=== PATIENT | male | born 1985 | race Caucasian/White ===

== ENCOUNTER 2019-12-09 15:50 | Emergency (ER) | payer SELFPAY ==
[~2019-12-09] VITALS: Ht 188 cm; Wt 79.5 kg
[2019-12-09] MEDS ORDERED: CYCLOBENZAPRINE10 M1 PO (17:35)
[2019-12-09 17:47] VITALS: BP 127/71
== END 2019-12-09 17:49 | disposition home or self-care (01) ==
LOC: ED 15:50
DX: S20.219A Contusion of unspecified front wall of thorax, initial encounter (principal); W10.8XXA Fall (on) (from) other stairs and steps, initial encounter; Y92.89 Other specified places as the place of occurrence of the external cause
CPT/HCPCS: J1885